=== PATIENT | male | born 1975 | race Caucasian/White ===

== ENCOUNTER 2016-11-29 11:48 | Emergency (ER) | payer OTHER, SELFPAY ==
[2016-11-29 11:59] VITALS: BP 141/95
--- NOTE | 2016-11-29 12:08 | EDM.PDOC ---
ED HPI GENERAL MEDICAL PROBLEM - General Chief Complaint: Upper Extremity Injury/Pain Stated Complaint: LT ELBOW INJURY Time Seen by Provider: 11/29/16 11:55 Source of Information: Reports: Patient History Limitations: Reports: No Limitations - History of Present Illness INITIAL COMMENTS - FREE TEXT/NARRATIVE: 41-year-old male presents to the ED with an acute injury to his left upper extremity. He states he was running with the kids yesterday afternoon and he tripped and fell landing he believes on outstretched left hand. Suffered injuries to the left proximal elbow and forearm. States that overnight pain has increased in the elbow area. He also has some paresthesias in the volar aspect of the forearm the radiate down towards his hand. Denies hitting his head. He has no shoulder arm injury. He has no wrist or hand injury. No open wounds. Limited pronation supination at the elbow. It is along the extensor surface of the elbow towards the olecranon process. 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 [No Known Home Meds] 11/29/16 [History] Past Medical History - Past Health History Medical/Surgical History: Denies Medical/Surgical History Social & Family History - Tobacco Use Smoking Status *Q: Never Smoker - Recreational Drug Use Recreational Drug Use: No - Living Situation & Occupation Occupation: Employed Review of Systems - Review of Systems Review Of Systems: See Below Constitutional: Reports: No Symptoms Eyes: Reports: No Symptoms Ears: Reports: No Symptoms Nose: Reports: No Symptoms Mouth/Throat: Reports: No Symptoms Respiratory: Reports: No Symptoms Cardiovascular: Reports: No Symptoms GI/Abdominal: Reports: No Symptoms Genitourinary: Reports: No Symptoms Musculoskeletal: Reports: No Symptoms Skin: Reports: No Symptoms Neurological: Reports: No Symptoms Psychiatric: Reports: No Symptoms ED EXAM, GENERAL - Physical Exam Exam: See Below Exam Limited By: No Limitations General Appearance: Alert, WD/WN, No Apparent Distress Peripheral Pulses: 3+: Radial (L) Extremities: Other (examination was limited to the left upper extremity. There is no abdomen maladies of the hand or wrist. There is slight swelling of the proximal proximal extensor musculature over the forearm. There is slight tenderness over the olecranon process. He has some pain at full pronation at the elbow. Pain over the radial head. Good radial pulses.) Neurological: Alert, Oriented, CN II-XII Intact, Normal Cognition, Normal Gait Psychiatric: Normal Affect, Normal Mood Skin Exam: Warm, Dry, Intact, Normal Color, No Rash Course - Vital Signs Last Recorded V/S: Last Vital Signs Temp 36.4 C 11/29/16 11:55 Pulse 75 11/29/16 11:55 Resp 15 11/29/16 11:55 BP 141/95 H 11/29/16 11:55 Pulse Ox 98 11/29/16 11:55 - Orders/Labs/Meds Orders: Active Orders 24 hr Category Date Time Status Forearm 2V Lt [CR] Stat Exams 11/29/16 12:01 Taken - Radiology Interpretation Free Text/Narrative:: 41-year-old male presents for evaluation of an injury to his left upper extremity occurred yesterday while he was running with the kids. He tripped and fell and landed on outstretched left hand injuring his left proximal forearm and elbow area. It is too bad at the time but overnight it is increased in intensity and pain and with limited range of motion at the elbow. Came to have it checked out. - Re-Assessments/Exams Free Text/Narrative Re-Assessment/Exam: 11/29/16 12:28x-ray of the left forearm reveals no fractures. There is slight elevation of the anterior fat pad at the distal humerus suggesting slight fluid within the allowable joint. I could find no fractures within the true elbow joint. It appears that he may just have a contusion to the elbow area.patient hasn't taken any Tylenol or NSAIDs for the pain. Is bothered enough that he is to support the arm and therefore I'm going to have him placed in an arm sling. He will use Motrin 600 mg every 6 hours for eduction of pain and inflammation. Departure - Departure Time of Disposition: 12:32 Disposition: Home, Self-Care 01 Condition: Fair Clinical Impression: Contusion of left forearm, initial encounter - Discharge Information Referrals: PCP,None [Primary Care Provider] - Forms: ED Department Discharge Additional Instructions: evaluation in the emergency him today in regards to recent fall with blunt force trauma to the left forearm and elbow area that occurred last night. Some numbness and tingling indicates nerve irritation likely the radial nerve has been contused from the fall. Pain mostly in the proximal extensor forearm muscles and over the olecranon process of the elbow. His do not reveal any bony injuries but they do show slight elevation of the anterior fat pad in the elbow suggesting there is an accumulation of fluid or blood within the elbow joint from the trauma. Treatment is conservative with time to heal. Arm sling to be used as needed for comfort measures for 2-3 days. Ice pack to the area for one half hour out of every 4 hours today and after 48 hours post injury may apply heat packs to the area. Suggest Motrin 600 mg every 6 hours as needed to relieve pain and inflammation. Expect the arm to be about the same tomorrow or perhaps even a little worse a swelling maxes out after 48 hours post injury. Then gradual improvement over the next 7 days. If not completely back to normal in 10 days' time he should be reviewed. - My Orders Last 24 Hours: My Active Orders 11/29/16 12:01 Forearm 2V Lt [CR] Stat - Assessment/Plan Last 24 Hours: My Active Orders 11/29/16 12:01 Forearm 2V Lt [CR] Stat
--- NOTE | 2016-12-01 10:25 | CR ---
Left forearm: AP and lateral views of the left forearm were obtained. No fracture or other bony abnormality is identified. Impression: 1. No abnormality is identified on two-view left forearm study. Diagnostic code #1
== END 2016-11-29 12:40 | disposition home or self-care (01) ==
LOC: JD.ED 11:48
DX: S50.12XA Contusion of left forearm, initial encounter (principal); W01.0XXA Fall on same level from slipping, tripping and stumbling without subsequent striking against object, initial encounter
CPT/HCPCS: 73090-26-LT; 73090-LT; 99283